=== PATIENT | female | born 1995 | race Caucasian/White ===

== ENCOUNTER 2025-02-14 17:01 | Emergency (ER) | payer OTHER, MEDICAID ==
[~2025-02-14] VITALS: Ht 170.2 cm; Wt 67.0 kg
[2025-02-14] MEDS ORDERED: CYCL-837 PO (18:17)
[2025-02-14] MEDS ORDERED: ACET500T58 PO (18:17)
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
[2025-02-14 18:19] VITALS: BP 145/71; PULSE 103; RESP 16; TEMP 98.7; O2SAT 98
== END 2025-02-14 18:25 | disposition home or self-care (01) ==
LOC: ER 17:23
DX: S16.1XXA Strain of muscle, fascia and tendon at neck level, initial encounter (principal); S29.012A Strain of muscle and tendon of back wall of thorax, initial encounter; E11.9 Type 2 diabetes mellitus without complications; V59.40XA Driver of pick-up truck or van injured in collision with unspecified motor vehicles in traffic accident, initial encounter; Y93.89 Activity, other specified; Y92.410 Unspecified street and highway as the place of occurrence of the external cause; Y99.8 Other external cause status